=== PATIENT | male | born 1960 | race Caucasian/White ===

== ENCOUNTER 2017-02-12 13:55 | Inpatient (IN) | payer OTHER ==
[~2017-02-12] VITALS: Ht 177.8 cm; Wt 90.0 kg
[2017-02-12] MEDS ORDERED: ceFAZolin 2 GM PREMIX 50 ML ONE (14:00)
[2017-02-12 14:07] VITALS: O2SAT 97
[2017-02-12 14:15] LABS: I-STAT POTASSIUM 4.1 MMOL/L (3.5-4.9)
[2017-02-12 14:16] LABS: AUTOMATED NEUTROPHIL # 8.4 TH/MM3 (1.8-7.7); BASOPHIL # 0.1 TH/MM3 (0-0.2); BASOPHIL % 1.1 % (0.0-2.0); EOSINOPHIL # 0.1 TH/MM3 (0-0.4); EOSINOPHIL % 1.1 % (0.0-4.0); HEMATOCRIT 48.1 % (39.0-51.0); HEMO FLAGS DIFF FINAL; LYMPH % 20.7 % (9.0-44.0); LYMPHOCYTE # 2.4 TH/MM3 (1.0-4.8); MEAN CELL VOLUME 92.4 FL (80.0-100.0); MEAN CORPUSCULAR HEMOGLOBIN 31.3 PG (27.0-34.0); MEAN CORPUSCULAR HGB CONC 33.9 % (32.0-36.0); MONO % 4.9 % (0.0-8.0); NEUT % 72.2 % (16.0-70.0); PLATELET COUNT 245 TH/MM3 (150-450); RED CELL DISTRIBUTION WIDTH 14.3 % (11.6-17.2); WHITE BLOOD COUNT 11.6 TH/MM3 (4.0-11.0)
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
[2017-02-12 14:28] LABS: APTT (PATIENT) 24.3 SEC (24.3-30.1); PROTHROMBIN TIME - PATIENT 11.5 SEC (9.8-11.6)
[2017-02-12 14:30] VITALS: BP 200/94; PULSE 84; RESP 20; O2SAT 99
[2017-02-12] MEDS ORDERED: IOHEXOL 350 MG/ML 10 ML VIAL (for RAD DIAG) IVCONTRAST ONE (14:37)
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
[2017-02-12 15:00] VITALS: BP 182/86; PULSE 86; RESP 20; O2SAT 99
[2017-02-12] MEDS ORDERED: HYDROmorphone HCL PF 1 MG/ML VIAL IV PUSH ONE (15:00)
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
[2017-02-12] MEDS ORDERED: LIDOCAINE 2%/EPINEPHrine 1:100,000 20ML MDV NERV BLOCK ONE (15:15)
[2017-02-12 15:30] VITALS: BP 186/81; PULSE 102; RESP 20; O2SAT 99
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
[2017-02-12] MEDS ORDERED: BUPIVACAINE HCL PF 0.5% 30 ML VIAL ONE (15:50)
[2017-02-12] MEDS ORDERED: LIDOCAINE HCL 2% 50 ML VIAL ONE (15:50)
[2017-02-12] MEDS ORDERED: BACITRACIN TOP OINT 15 GM TUBE ONE (15:50)
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
[2017-02-12] MEDS ORDERED: CLINDAMYCIN PHOS 600 MG/4 ML VIAL ONE (16:25)
[2017-02-12] MEDS ORDERED: CIPROFLOXACIN 400 MG PREMIX 200 ML ONE (16:35)
[2017-02-12] MEDS ORDERED: GENTAMICIN SULFATE 80 MG/2 ML VIAL ONE (17:02)
[2017-02-12] MEDS ORDERED: SODIUM CHLORIDE 0.9% FLUSH 10 ML FLUSH IV FLUSH PRN (18:15)
[2017-02-12] MEDS ORDERED: MAGNESIUM HYDROXIDE SUSP 30 ML CUP PO PRN (18:15)
[2017-02-12] MEDS ORDERED: ACETAMINOPHEN/HYDROcodone 325 MG/5 MG TAB PO PRN ×2 (18:15)
[2017-02-12] MEDS ORDERED: HYDROmorphone HCL PF 1 MG/ML VIAL IVP PRN (18:15)
[2017-02-12] MEDS ORDERED: ONDANSETRON HCL 4 MG/2 ML VIAL IV PUSH PRN (18:15)
[2017-02-12] MEDS ORDERED: ENALAPRILAT 1.25 MG/ML VIAL IV PUSH PRN (18:15)
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
[2017-02-12] MEDS ORDERED: DO NOT ADM ANY ANTICOAGULANT DRUGS PRN (19:03)
[2017-02-12] MEDS ORDERED: *MEPERIDINE 25 MG INJ VIAL PERIprocedural Use ONLY ONE (19:26)
[2017-02-12] MEDS ORDERED: CIPROFLOXACIN 750 MG TAB PO SCH (19:41)
[2017-02-12] MEDS ORDERED: *morphine SULFATE 8 MG/ML PERIprocedure ONLY ONE (19:43)
[2017-02-12] MEDS: DEXT 5%-NACL 0.45% 1000 ML INJ 1,000 ML IV SCH (19:45)
[2017-02-12] MEDS ORDERED: PANTOPRAZOLE SODIUM 40 MG VIAL IVP SCH (20:00)
[2017-02-12 20:35] VITALS: BP 135/84; PULSE 103; RESP 19; TEMP 96.2; O2SAT 96
[2017-02-12] MEDS: DOCUSATE SODIUM 100 MG CAP PO SCH (21:00)
[2017-02-12] MEDS: ACETAMINOPHEN/HYDROcodone 325 MG/5 MG TAB PO PRN (21:02)
[2017-02-12] MEDS: SODIUM CHLOR 0.9% 1000 ML INJ 1,000 ML IV SCH (21:07)
[2017-02-12 21:30] VITALS: O2SAT 97
[2017-02-12] MEDS: MEPERIDINE HCL 50 MG/ML VIAL IM PRN (22:39)
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
[2017-02-13 00:40] VITALS: BP 135/94; PULSE 97; RESP 18; TEMP 97.4; O2SAT 98
[2017-02-13] MEDS: ACETAMINOPHEN/HYDROcodone 325 MG/5 MG TAB PO PRN ×4 (02:21→16:54)
[2017-02-13] MEDS: DEXT 5%-NACL 0.45% 1000 ML INJ 1,000 ML IV SCH ×2 (03:57→11:45)
[2017-02-13] MEDS: MEPERIDINE HCL 50 MG/ML VIAL IM PRN ×2 (03:58→10:55)
[2017-02-13] MEDS: SODIUM CHLOR 0.9% 1000 ML INJ 1,000 ML IV SCH ×2 (04:05→14:05)
[2017-02-13 04:30] VITALS: BP 155/89; PULSE 86; RESP 18; TEMP 97.8; O2SAT 99
[2017-02-13] MEDS: CIPROFLOXACIN 750 MG TAB PO SCH ×2 (05:25→16:54)
[2017-02-13 06:40] LABS: AUTOMATED NEUTROPHIL # 7.4 TH/MM3 (1.8-7.7); BASOPHIL % 0.4 % (0.0-2.0); EOSINOPHIL % 0.1 % (0.0-4.0); HEMATOCRIT 40.3 % (39.0-51.0); HEMO FLAGS DIFF FINAL; LYMPH % 11.8 % (9.0-44.0); LYMPHOCYTE # 1.1 TH/MM3 (1.0-4.8); MEAN CELL VOLUME 92.2 FL (80.0-100.0); MEAN CORPUSCULAR HEMOGLOBIN 31.9 PG (27.0-34.0); MEAN CORPUSCULAR HGB CONC 34.6 % (32.0-36.0); MONO % 8.4 % (0.0-8.0); NEUT % 79.3 % (16.0-70.0); PLATELET COUNT 190 TH/MM3 (150-450); RED BLOOD COUNT 4.37 MIL/MM3 (4.50-5.90); RED CELL DISTRIBUTION WIDTH 14.2 % (11.6-17.2); WHITE BLOOD COUNT 9.3 TH/MM3 (4.0-11.0)
[2017-02-13] MEDS ORDERED: DOCU1CAP39 PO (06:51)
[2017-02-13] MEDS ORDERED: MAGN400S PO (06:51)
[2017-02-13 07:13] LABS: ANION GAP 6 MEQ/L (5-15); AST (GOT) 23 U/L (15-37); BICARBONATE 25.8 MEQ/L (21.0-32.0); BLOOD UREA NITROGEN 9 MG/DL (7-18); CHLORIDE 101 MEQ/L (98-107); GLOMERULAR FILTRATION RATE 75 ML/MIN (>89); POTASSIUM 4.3 MEQ/L (3.5-5.1); SODIUM (NA) 133 MEQ/L (136-145)
[2017-02-13 07:14] LABS: ALT (GPT) 30 U/L (12-78)
[2017-02-13 07:16] LABS: ALKALINE PHOSPHATASE 44 U/L (45-117); TOTAL BILIRUBIN ADULT 0.6 MG/DL (0.2-1.0)
[2017-02-13 08:00] VITALS: BP 133/85; PULSE 82; RESP 17; TEMP 97.4; O2SAT 97
[2017-02-13] MEDS: DOCUSATE SODIUM 100 MG CAP PO SCH (08:09)
--- NOTE | 2017-02-13 10:22 | MP ---
cc: OLIVIER GALLEGO III, M.D. DATE OF SURGERY: 02/12/2017 PREOPERATIVE DIAGNOSIS 1. Mangled right 5th finger. 2. Open wound left forearm with open olecranon avulsion fractures. POSTOPERATIVE DIAGNOSIS 1. Mangled right 5th finger. 2. Open wound left forearm with open olecranon avulsion fractures. PROCEDURE 1. Left upper extremity wound exploration with irrigation and debridement, sharp. 2. Sharp debridement of skin, subcutaneous tissue, muscle and bone associated with the open fractures. 3. Complex wound closure in layers greater than 8 cm in length. 4. Right fifth finger revision amputation. SURGEON Olivier Gallego III, MD DETAILS OF PROCEDURE The patient was brought to the operating room and placed supine on the operating table. After the correct site and side of surgery were verified by members of each team in the room multiple times including the patient and myself and after adequate preoperative markings and preoperative written consent were verified by everyone, and after an adequate preoperative timeout was performed to everyone's satisfaction, and after adequate general anesthesia had been achieved, the left upper extremity was prepped and draped in the traditional sterile surgical fashion. The wound was explored thoroughly and found to be down through all layers of the skin through the proximal forearm musculature. The olecranon was exposed and had been abraded and there were some avulsion fracture fragments. These were all debrided as was the surface of the bone. Cultures were obtained. All foreign material that was visualized was removed. More than 3 liters' worth of antibiotic saline irrigation was used in a pulsatile fashion to thoroughly flush out the wound. It was closed in layers using deep 2-0 Vicryl sutures and then 3-0 nylon loosely placed within the skin leaving several gaps for drainage. A 1/4 inch Mathieu drain was placed [id number] in two separate places but coming out of the wound. The hand and arm were thoroughly cleansed and dried. Road rash was sanitized and triple-antibiotic ointment applied. Xeroform was applied atop of the road rash and then a circumferential dressing was applied. Attention was paid to the right fifth finger. The right upper extremity was prepped and draped in traditional sterile surgical fashion. A 50/50 mixture of 2% plain lidocaine and 0.5% plain Marcaine was infiltrated in the skin and subcutaneous tissue at the level of the 5th metacarpal. The finger was then thoroughly irrigated using 3 liters of antibiotic saline solution in a pulsatile fashion. It was then examined and there was no bone. There were fragments only from the proximal half of the proximal phalanx distally. There were just crumbs and fragments. There were no fragments resembling any joint surface and the extensor mechanism was completely destroyed. There was significant soft tissue destruction as well. At this point I elected to go through with the original plan which was a guillotine-type of amputation at an area near where the PIP joint would be located in order to maintain his left finger length as possible. Any viable bone fragments were left behind and then advancement flaps were used and tailored to the closure to provide some cosmetic relief. This was done using 3-0 chromic sutures. There were no other anatomic abnormalities other than multiple lacerations along the hand and forearm and these were all cleansed and thoroughly cleaned out. Betadine and Xeroform was applied on top of the road rash. The hand and arm were thoroughly cleansed and dried. Bulky dressings were applied atop of the wounds. The patient was awakened from anesthesia and transported to the post-anesthesia care unit awake and in stable condition at the end of the case. The sponge, needle and instrument counts were correct at the end of the case as reported by the nurses in the room. MD CHERRY Burnette III/FILEMON /6:58 PM /10:02 AM
[2017-02-13 11:00] VITALS: O2SAT 95
[2017-02-13 12:00] VITALS: BP 145/85; PULSE 79; RESP 18; TEMP 96.9; O2SAT 93
[2017-02-13] MEDS ORDERED: BACITRACIN TOP OINT 15 GM TUBE TOPICAL SCH (12:00)
--- NOTE | 2017-02-13 12:13 | RADRPT ---
EXAM DATE/TIME: 02/13/2017 10:59 [facility] COMPARISON: FOREARM LEFT (2VWS), February 12, 2017, 13:48. INDICATIONS : Left elbow pain. RADIATION DOSE: 16.96 CTDIvol (mGy) MEDICAL HISTORY : None SURGICAL HISTORY : None. ENCOUNTER: Initial ACUITY: 1 day PAIN SCALE: 5/10 LOCATION: Left TECHNIQUE: Volumetric scanning of the elbow was performed. Using automated exposure control and adjustment of t he mA and/or kV according to patient size, radiation dose was kept as low as reasonably achievable to obtain optimal diagnostic quality images. DICOM format image data is available electronically for r eview and comparison. FINDINGS: There is normal alignment of the osseous structures about the elbow. No fracture seen. In soft tissues about the proximal ulna, there is a subcutaneous drain in place. There is also scatt ered gas in the posterior lateral subcutaneous soft tissues. There are 2 linear opacities which tracked along the lateral cortex of the proximal ulna, both measur ing approximately 7 mm in length. An unrelated to the drain and may represent residual radiopaque fo reign bodies. CONCLUSION: 1. No fracture or dislocation seen. 2. Possible retained foreign bodies adjacent to the lateral proximal ulna. Zen Lozano MD on February 13, 2017 at 12:05 Board Certified Radiologist. This report was verified electronically.
[2017-02-13] MEDS: KETOROLAC TROMETHAMINE 30 MG/ML (IVP) VIAL IV PUSH SCH ×2 (12:57→16:57)
[2017-02-13] MEDS ORDERED: CIPR-9 PO (13:24)
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
[2017-02-13] MEDS ORDERED: HYDR-3516 PO (13:35)
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
[2017-02-13] MEDS ORDERED: PERC5TAB12 PO (14:00)
--- NOTE | 2017-02-13 15:47 | RADRPT ---
EXAM DATE/TIME: 02/13/2017 14:29 [facility] COMPARISON: No previous studies available for comparison. INDICATIONS : Left wrist pain. MEDICAL HISTORY : None. SURGICAL HISTORY : ORIF left forearm. ENCOUNTER: Initial ACUITY: 1 day PAIN SCORE: 3/10 LOCATION: Left wrist. FINDINGS: Three-view examination demonstrates a volar plate in the mid and distal radius. The hardware and scr ews appear grossly intact. There is prominent soft tissue swelling about the volar aspect of the for earm. Foreign bodies the [id number]. The carpus is in normal alignment. CONCLUSION: Intact internal fixation hardware. Prominent volar soft tissue swelling.. Zen Lozano MD on February 13, 2017 at 15:44 Board Certified Radiologist. This report was verified electronically.
== END 2017-02-13 17:38 | disposition home or self-care (01) | DRG 501 ==
LOC: NEPI 13:55 → NEDA 15:14 → EDBD 18:09 → OBSVTOIN 18:09 → N06A 20:18
PROVIDERS: ADMIT Surgery; ATTEND Surgery
PROC: 0PBL0ZZ Excision of Left Ulna, Open Approach (ICD-10-PCS; 2017-02-12)
PROC: 0X6V0Z1 Detachment at Right Little Finger, High, Open Approach (ICD-10-PCS; 2017-02-12)
PROC: 0HQ0XZZ Repair Scalp Skin, External Approach (ICD-10-PCS; 2017-02-12)
PROC: 0JQH0ZZ Repair Left Lower Arm Subcutaneous Tissue and Fascia, Open Approach (ICD-10-PCS; principal; 2017-02-12 16:31)
DX: S52.022B Displaced fracture of olecranon process without intraarticular extension of left ulna, initial encounter for open fracture type I or II (principal); S62.606B Fracture of unspecified phalanx of right little finger, initial encounter for open fracture; S01.01XA Laceration without foreign body of scalp, initial encounter; F17.210 Nicotine dependence, cigarettes, uncomplicated; V29.9XXA Motorcycle rider (driver) (passenger) injured in unspecified traffic accident, initial encounter
CPT/HCPCS: 70450; 71010; 71260; 72125; 72170; 73090; 73110; 73120; 73200; 74177; 80053; 82435; 82565; 82947; 84132; 84295; 84520; 85025; 85610; 85730; 86850; 86900; 86901; 87015; 87070; 87102; 87116; 87205; 87206; 88305; 94150; 99285; C9113; J0690; J0744; J1170; J1580; J1885; J2175; J2270; Q9967

== ENCOUNTER 2017-02-26 19:55 | Emergency (ER) | payer SELFPAY ==
[~2017-02-26] VITALS: Ht 182.9 cm; Wt 95.0 kg
[~2017-02-26 19:55] MED LIST: CIPR-9 PO; DOCU1CAP39 PO; IBUP1TAB7 PO; MAGN400S PO; PERC5TAB12 PO
[2017-02-26 19:56] VITALS: BP 171/99; PULSE 72; RESP 16; TEMP 97.6; O2SAT 98
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
[2017-02-26 21:29] LABS: AUTOMATED NEUTROPHIL # 8.8 TH/MM3 (1.8-7.7); BASOPHIL # 0.1 TH/MM3 (0-0.2); EOSINOPHIL # 0.1 TH/MM3 (0-0.4); EOSINOPHIL % 1.2 % (0.0-4.0); HEMATOCRIT 41.6 % (39.0-51.0); HEMO FLAGS DIFF FINAL; LYMPH % 19.4 % (9.0-44.0); LYMPHOCYTE # 2.3 TH/MM3 (1.0-4.8); MEAN CELL VOLUME 90.4 FL (80.0-100.0); MEAN CORPUSCULAR HEMOGLOBIN 30.7 PG (27.0-34.0); MONO % 4.5 % (0.0-8.0); NEUT % 73.9 % (16.0-70.0); PLATELET COUNT 328 TH/MM3 (150-450); RED CELL DISTRIBUTION WIDTH 13.7 % (11.6-17.2); WHITE BLOOD COUNT 11.9 TH/MM3 (4.0-11.0)
[2017-02-26] MEDS ORDERED: KETOROLAC TROMETHAMINE 30 MG/ML (IVP) VIAL IVP ONE (21:30)
[2017-02-26] MEDS ORDERED: diphenhydrAMINE HCL 50 MG/ML VIAL IVP ONE (21:30)
[2017-02-26] MEDS ORDERED: ONDANSETRON HCL 4 MG/2 ML VIAL IVP ONE (21:30)
--- NOTE | 2017-02-26 21:32 | RADRPT ---
EXAM DATE/TIME: 02/26/2017 20:24 [facility] COMPARISON: CHEST SINGLE AP, February 12, 2017, 13:48. INDICATIONS : Dizziness. Headaches. Cough. Recent head trauma. MEDICAL HISTORY : None. SURGICAL HISTORY : ORIF forearm, left. ENCOUNTER: Subsequent ACUITY: 2 days PAIN SCORE: 5/10 LOCATION: Right skull FINDINGS: PA and lateral views of the chest demonstrate the lungs to be symmetrically aerated without evidence of significant mass, infiltrate or effusion. Multiple calcified granulomas are seen. The cardiomedia stinal contours are unremarkable. There are old left rib fracture deformities. CONCLUSION: No acute abnormality seen. There numerous calcified granulomas and old left rib fractures. Kendrick Vargas MD on February 26, 2017 at 21:28 Board Certified Radiologist. This report was verified electronically.
[2017-02-26 21:38] LABS: ANION GAP 8 MEQ/L (5-15); BICARBONATE 26.8 MEQ/L (21.0-32.0); BLOOD UREA NITROGEN 8 MG/DL (7-18); CHLORIDE 102 MEQ/L (98-107); GLOMERULAR FILTRATION RATE 74 ML/MIN (>89); POTASSIUM 3.7 MEQ/L (3.5-5.1); SODIUM (NA) 137 MEQ/L (136-145)
[2017-02-26 21:42] LABS: CREATINE KINASE 107 U/L (39-308)
[2017-02-26 21:55] LABS: CKMB 1.1 NG/ML (0.5-3.6)
[2017-02-26 22:19] LABS: APTT (PATIENT) 29.4 SEC (24.3-30.1); PROTHROMBIN TIME - PATIENT 10.6 SEC (9.8-11.6)
[2017-02-26] MEDS ORDERED: MORPHINE SULFATE 4 MG/ML INJ IV PUSH ONE (22:45)
--- NOTE | 2017-02-26 22:46 | RADRPT ---
EXAM DATE/TIME: 02/26/2017 21:33 [facility] COMPARISON: CT BRAIN W/O CONTRAST, February 12, 2017, 14:05. INDICATIONS : Dizziness and diaphoresis. RADIATION DOSE: 46.19 CTDIvol (mGy) MEDICAL HISTORY : None SURGICAL HISTORY : Fusion, lumbar. ENCOUNTER: Initial ACUITY: 2 days PAIN SCALE: 0/10 LOCATION: cranial TECHNIQUE: Multiple contiguous axial images were obtained of the head. Using automated exposure control and adj ustment of the mA and/or kV according to patient size, radiation dose was kept as low as reasonably a chievable to obtain optimal diagnostic quality images. DICOM format image data is available electro nically for review and comparison. FINDINGS: CEREBRUM: The ventricles are normal for age. No evidence of midline shift, mass lesion, hemorrhage or acute in farction. No extra-axial fluid collections are seen. POSTERIOR FOSSA: The cerebellum and brainstem are intact. The 4th ventricle is midline. The cerebellopontine angle i s unremarkable. EXTRACRANIAL: The visualized portion of the orbits is intact. There is persistent but improving soft tissue density and calcification in the left frontal scalp. SKULL: The calvaria is intact. No evidence of skull fracture. CONCLUSION: 1. No intracranial abnormality seen. 2. Evolving scalp hematoma/injury. Kendrick Vargas MD on February 26, 2017 at 22:44 Board Certified Radiologist. This report was verified electronically.
[2017-02-26] MEDS ORDERED: MECL-62 PO ×2 (23:07→23:08)
[2017-02-26] MEDS ORDERED: ZOFR4TAB3 SL ×2 (23:07→23:08)
[2017-02-26] MEDS ORDERED: ACETAMIN 325 MG/BUTALBITAL 50 MG/CAFFEINE 40 MG TAB PO ONE (23:15)
== END 2017-02-26 23:40 | disposition home or self-care (01) ==
LOC: NEPE 19:55
DX: F07.81 Postconcussional syndrome (principal); R42 Dizziness and giddiness; R51 Headache; M54.2 Cervicalgia; R09.81 Nasal congestion; I10 Essential (primary) hypertension; Z72.0 Tobacco use; Z79.899 Other long term (current) drug therapy
CPT/HCPCS: 70450; 71020; 80048; 82550; 82552; 84484; 85025; 85610; 85730; 96374; 96375; 99285; J1200; J1885; J2405